=== PATIENT | male | born 1945 | race Caucasian/White ===

== ENCOUNTER → 2020-07-13 | Outpatient (CLI) | payer MEDICARE ==
--- NOTE | 2020-07-13 14:54 | EST ---
EXERCISE STRESS AGE: 74 SEX: M HT: 5'7" WT: 350 lbs. PROTOCOL: Kyle DURATION OF EXERCISE: 8:16 HEART RATE REST: 87 BLOOD PRESSURE REST: 142/73 MAXIMUM HEART RATE ACHIEVED: 133 MAXIMUM BLOOD PRESSURE: 166/77 85% MPHR: 123 100% MPHR: 145 METS: 2.6 INDICATIONS: Difficulty in breathing. CLINICAL INFORMATION: Baseline EKG shows sinus rhythm, left axis deviation and nonspecific ST-T wave changes. Patient exercised on Kyle protocol for a total of 1 minute and 25 seconds achieving 2 METS, 90% of predicted maximal heart rate without chest pain. There were frequent PVCs noted during exercise and there was [address]-segment depression noted in the inferolateral leads. CONCLUSION: 1. Extremely poor exercise tolerance. 2. Abnormal stress test by EKG criteria. MMJOSE / JHONN: [id number] /
--- NOTE | 2020-07-14 11:39 | ECHOF ---
Referral Reason:R06.02 Shortness of breath MEASUREMENTS -------- HEIGHT: 170.2 cm WEIGHT: 158.8 kg BP: RVIDd: 5.6 cm (< 3.3) IVSd: 1.6 cm (0.6 - 1.1) LVIDd: 5.1 cm (3.9 - 5.3) LVPWd: 1.7 cm (0.6 - 1.1) IVSs: 1.9 cm LVIDs: 4.7 cm LVPWs: 2.0 cm Ao Diam: 3.3 cm (2.0 - 3.7) AV Cusp: 2.5 cm (1.5 - 2.6) MV E Magdi: 0.21 m/s MV DecT: 278 ms MV A Magdi: 0.63 m/s MV E/A Ratio: 0.34 FINDINGS -------- Sinus rhythm. Morbid Obesity The left ventricular size is normal. There is moderate concentric left ventricular hypertrophy. O verall left ventricular systolic function is low-normal with, an EF between 50 - 55 %. The right ventricle is severely enlarged. The left atrial size is normal. The right atrial size is normal. The aortic valve was not well visualized. Mild mitral regurgitation is present. Mild tricuspid regurgitation present. Right ventricular systolic pressure is normal at < 35 mmHg. The pulmonic valve was not well visualized. Ascending Aortic Root is dilated and measures 4.2cm. There is no pericardial effusion. CONCLUSIONS -------- 1. Morbid Obesity 2. The left ventricular size is normal. 3. There is moderate concentric left ventricular hypertrophy. 4. Overall left ventricular systolic function is low-normal with, an EF between 50 - 55 %. 5. The right ventricle is severely enlarged. 6. The left atrial size is normal. 7. The right atrial size is normal. 8. The aortic valve was not well visualized. 9. Mild mitral regurgitation is present. 10. Mild tricuspid regurgitation present. 11. Right ventricular systolic pressure is normal at < 35 mmHg. 12. The pulmonic valve was not well visualized. 13. Ascending Aortic Root is dilated and measures 4.2cm. [employer] SUPERVISOR: Brooke Keller RDCS
== END | disposition home or self-care (01) ==
LOC: RADNMMAIN 10:30
PROVIDERS: ATTEND Family Medicine
DX: R94.39 Abnormal result of other cardiovascular function study (principal); I08.1 Rheumatic disorders of both mitral and tricuspid valves; E66.01 Morbid (severe) obesity due to excess calories
CPT/HCPCS: 93017; C8929; Q9950; 93306